=== PATIENT | female | born 2000 | race Caucasian/White ===

== ENCOUNTER 2021-05-15 09:24 | Outpatient (REF) | payer BC, SELFPAY ==
[2021-05-15 11:52] LABS: Monotest Negative (Negative)
[2021-05-16 17:27] LABS: EBV-VCA IgM Ab <36.00 U/mL
== END 2021-05-15 09:25 | disposition home or self-care (01) ==
LOC: HO.HMGCLDS 09:24
PROVIDERS: PCP Internal Medicine; Visit Provider Nurse Practitioner Family
DX: J02.9 Acute pharyngitis, unspecified (principal)
CPT/HCPCS: 36415; 86308; 86664; 86665

== ENCOUNTER 2021-07-20 16:00 | Emergency (ER) | payer OTHER, BC, SELFPAY ==
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
[2021-07-20 16:18] VITALS: BP 120/70; PULSE 83; RESP 16; TEMP 37.4; O2SAT 98; BMI 31.7
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
[2021-07-20] MEDS: Ketorolac Tromethamine 15 MG/ML VIAL IM (20:32)
[2021-07-20 20:40] LABS: UPreg QC Valid YES; Urine Pregnancy NEGATIVE (NEGATIVE)
== END 2021-07-20 22:48 | disposition home or self-care (01) ==
PROVIDERS: Physician Assistant; Emergency Provider Emergency Medicine Emergency Medical Services; PCP Internal Medicine
DX: S06.0X0A Concussion without loss of consciousness, initial encounter (principal); S60.512A Abrasion of left hand, initial encounter; S60.511A Abrasion of right hand, initial encounter; M54.2 Cervicalgia; M54.6 Pain in thoracic spine; M25.562 Pain in left knee; M25.561 Pain in right knee; V43.52XA Car driver injured in collision with other type car in traffic accident, initial encounter; Y93.9 Activity, unspecified; Y92.410 Unspecified street and highway as the place of occurrence of the external cause; Y99.9 Unspecified external cause status
CPT/HCPCS: 70450; 72125; 72128; 72131; 73564; 81025; 96372; 99283; 99284; J1885

== ENCOUNTER 2025-03-14 12:42 | Emergency (ER) | payer SELFPAY ==
[2025-03-14 12:48] VITALS: BP 151/101; PULSE 114; RESP 16; TEMP 36.6; O2SAT 98; BMI 32.6
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
[2025-03-14 13:28] LABS: MANUAL DIFF FLAG NO
[2025-03-14 13:33] LABS: Appearance Urine Clear; Color Urine Yellow; Glucose Urine UA Negative (Negative); Leukocyte Esterase Urine Negative (Negative); Nitrite Urine Negative (Negative); PH 5.5 (5.0-9.0); Specific Gravity - Urine 1.015 (1.005-1.025); Urine Blood Negative (Negative); Urine Ketones Trace mg/dL (Negative); Urine Protein Negative (Neg-Trace)
[2025-03-14 13:39] LABS: Hematocrit 45.7 % (37.0-47.0); Hemoglobin 15.8 g/dl (12.0-16.0); Red Blood Count 5.08 X10*6/uL (4.20-5.50); White Blood Count 8.1 X10*3/uL (4.8-10.8)
[2025-03-14 13:40] LABS: Basophils Absolute Auto 0.1 X10*3/uL (0.0-0.2); Basophils Percent Auto 0.6 % (0-2); Eosinophils Absolute Auto 0.1 X10*3/uL (0.0-0.4); Eosinophils Percent Auto 0.6 % (0-4); Imm Gran Abs Auto 0.04 X10*3/uL (0.00-0.03); Imm Gran Pct Auto 0.5 % (0.0-0.4); Lymphocytes Absolute Auto 1.5 X10*3/uL (1.2-4.9); Mean Corpuscular HGB Conc 34.6 g/dl (31.0-35.0); Mean Corpuscular Hemoglobin 31.1 pg (27.0-33.0); Mean Platelet Volume 9.7 fL (9.4-12.3); Monocytes Absolute Auto 0.6 X10*3/uL (0.1-1.2); Monocytes Percent Auto 6.9 % (2-11); Neutrophils Absolute Auto 5.9 x10*3/uL (2.0-8.3); Neutrophils Percent Auto 72.4 % (45-73); Platelet Count 375 X10*3/uL (160-400); Red Cell Distribution Width 12.6 % (11.0-16.0)
[2025-03-14 13:43] LABS: Amphetamine Screen Urine Not Detected (Not Detect); Barbiturates, Urine Not Detected (Not Detect); Benzodiazepines Screen Urine Not Detected (Not Detect); Buprenorphine Scr Not Detected (Not Detect); Cannabinoid Screen Urine POSITIVE (Not Detect); Cocaine Screen Urine POSITIVE (Not Detect); Fentanyl, urine Not Detected (Not Detect); Methadone Screen, Urine Not Detected (Not Detect); Opiate Screen Urine Not Detected (Not Detect); Oxycodone Screen Urine Not Detected (Not Detect); Phencyclidine Screen Urine Not Detected (Not Detect)
[2025-03-14 13:50] LABS: Alanine Aminotransferase 19 U/L (0-31); Albumin Level 4.5 g/dL (3.5-5.0); Alkaline Phosphatase 73 U/L (39-117); Anion Gap 12 (12-20); Aspartate Amino Transferase 20 U/L (5-31); Bilirubin Total 1.9 mg/dL (0.0-1.0); Blood Urea Nitrogen 9 mg/dL (9-16); Calcium 9.4 mg/dL (8.4-10.2); Carbon Dioxide 25 mmol/L (22-29); Chloride 107 mmol/L (96-108); Creatinine Clr Calc Pharmacy 124.7; Estimated Glomerular Filt Rate > 60; Ethanol < 10 mg/dL; Glucose Random 80 mg/dL (60-115); Potassium 3.9 mmol/L (3.3-5.1); Sodium 140 mmol/L (135-145); Total Protein 7.8 g/dL (6.5-8.0)
[2025-03-14 13:55] VITALS: BP 120/77; PULSE 76; RESP 13; TEMP 36.8; O2SAT 100
[2025-03-14 14:02] LABS: UPreg QC Valid YES; Urine Pregnancy NEGATIVE (NEGATIVE)
[2025-03-14 14:49] VITALS: BP 107/64; PULSE 74; RESP 12; TEMP 36.6; O2SAT 100
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
--- NOTE | 2025-03-14 16:04 | PC.NURSE ---
Patient family member disagreeing with medical disposition. Notified care team, Family now speaking with care team
--- NOTE | 2025-03-14 16:15 | PC.NURSE ---
Family spoke with care team. Family in agreement with plan of care.
--- NOTE | 2025-03-15 15:02 | MHC.CARE ---
[facility] referral complete
== END 2025-03-14 16:16 | disposition home or self-care (01) ==
PROVIDERS: Physician Assistant; Emergency Provider Emergency Medicine; PCP Internal Medicine
DX: F33.1 Major depressive disorder, recurrent, moderate (principal); R45.851 Suicidal ideations; F14.90 Cocaine use, unspecified, uncomplicated; Z79.899 Other long term (current) drug therapy; Z51.81 Encounter for therapeutic drug level monitoring
CPT/HCPCS: 36415; 80053; 80307; 81003; 81025; 85025; 99284; 99285; S9485